=== PATIENT | female | born 1980 | race Caucasian/White ===

== ENCOUNTER 2016-12-11 23:45 | Observation (INO) | payer OTHER | END 2016-12-12 10:35 | disposition HSC | LOC: CBCO 23:45 → GNO 12-12 01:55 | PROVIDERS: ADMIT Obstetrics & Gynecology | DX: O47.1 False labor at or after 37 completed weeks of gestation (principal); Z3A.39 39 weeks gestation of pregnancy | CPT/HCPCS: G0378; G0463 ==

== ENCOUNTER 2016-12-14 07:49 | Inpatient (IN) | payer OTHER ==
[~2016-12-14] VITALS: Ht 162.6 cm; Wt 83.5 kg
[2016-12-14 09:56] LABS: ABSOLUTE BASOPHIL COUNT 0 /CUMM (0.0-0.2); ABSOLUTE EOSINOPHIL COUNT 0.1 /CUMM (0.0-0.7); ABSOLUTE GRANULOCYTE CT 6.5 /CUMM (1.4-6.5); ABSOLUTE LYMPH COUNT 1.6 /CUMM (1.2-3.4); ABSOLUTE MONOCYTE COUNT 0.5 /CUMM (0.10-0.60); BASOPHIL % 0.2 % (0.0-2.0); EOSINOPHIL % 0.8 % (0-5); GRANULOCYTE % 74.7 % (42.2-75.2); HEMATOCRIT 38.6 % (37-47); MEAN CORPUSCULAR HGB 30.3 PG (27.0-31.0); MEAN CORPUSCULAR HGB CONC 33.2 G/DL (33.0-37.0); MEAN CORPUSCULAR VOLUME 91.2 FL (81.0-99.0); MEAN PLATELET VOLUME 12.3 FL (7.4-10.4); RBC DISTRIBUTION WIDTH 13.2 % (11.5-14.5); RED BLOOD CELL CT 4.23 /CUMM (4.20-5.40); WHITE BLOOD CELL COUNT 8.6 /CUMM (4.8-10.8)
[2016-12-14 10:46] LABS: PLATELET COUNT 144 /CUMM (130-400)
--- NOTE | 2016-12-14 15:04 | Labor & Delivery Summary ---
Delivery Summary Vaginal Delivery: Vaginal: spontaneous Episiotomy/Lacerations: Episiotomy/Lacerations: epis Type: rml Repair: 3-0 poly int Anesthesia: local Placenta: Placenta: spontanteous, normal, 3 vessel Anesthesia: epi Baby's Weight: p sts Apgars - 1 Min: 9 Apgars - 5 Min: 9
[2016-12-15 08:09] LABS: ABSOLUTE BASOPHIL COUNT 0 /CUMM (0.0-0.2); ABSOLUTE EOSINOPHIL COUNT 0.1 /CUMM (0.0-0.7); ABSOLUTE GRANULOCYTE CT 8.6 /CUMM (1.4-6.5); ABSOLUTE LYMPH COUNT 1.8 /CUMM (1.2-3.4); ABSOLUTE MONOCYTE COUNT 0.8 /CUMM (0.10-0.60); BASOPHIL % 0.2 % (0.0-2.0); EOSINOPHIL % 0.6 % (0-5); GRANULOCYTE % 76.2 % (42.2-75.2); HEMATOCRIT 33.7 % (37-47); MEAN CORPUSCULAR HGB 30.7 PG (27.0-31.0); MEAN CORPUSCULAR HGB CONC 33.8 G/DL (33.0-37.0); MEAN CORPUSCULAR VOLUME 90.8 FL (81.0-99.0); MEAN PLATELET VOLUME 11.6 FL (7.4-10.4); PLATELET COUNT 131 /CUMM (130-400); RBC DISTRIBUTION WIDTH 13.3 % (11.5-14.5); RED BLOOD CELL CT 3.71 /CUMM (4.20-5.40); WHITE BLOOD CELL COUNT 11.3 /CUMM (4.8-10.8)
[2016-12-16] MEDS ORDERED: DOCUSATE SODIU100 M3 PO (11:08)
[2016-12-16] MEDS ORDERED: IBUPROFEN800 M1 PO (11:08)
--- NOTE | 2016-12-16 12:07 | History & Physical ---
General Information and HPI MD Statement: I have seen and personally examined JAMIE MOYA and documented this H&P. The patient is a 36 year old female at [40] weeks and [0] days gestation who presented with a chief complaint of [iol]. Source of Information: police History of Present Illness: iol ELECTIVE; NORMAL PNC Allergies/Medications Allergies: Coded Allergies: cephalexin (From KEFLEX) (RASH 12/12/16) Home Med list Docusate Sodium 100 MG CAPSULE 100 MG PO BID PRN CONSTIPATION Ibuprofen 800 MG TABLET 800 MG PO Q6P PRN UTERINE CRAMPING Past History payment rep History : 2 Para: 1 Last Menstrual Period: 03/09/16 Past payment rep History: non-contributory Surgical History Pertinent Surgical History: none Past Family/Social History Psychosocial History Smoking Status: Never Smoked Review of Systems Review of Systems Constitutional: Reports: no symptoms. EENTM: Reports: no symptoms. Cardiovascular: Reports: no symptoms. Respiratory: Reports: no symptoms. GI: Reports: no symptoms. Genitourinary: Reports: no symptoms. Musculoskeletal: Reports: no symptoms. Skin: Reports: no symptoms. Neurological/Psychological: Reports: no symptoms. Hematologic/Endocrine: Reports: no symptoms. Immunologic/Allergic: Reports: no symptoms. 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 No Contractions: NONE #1 - FHR Baseline: 140 Category: 1 Estimated Weight: 8 Presentation: CEPHALIC Patient for Induction? Yes العلي Score العلي Score Response Value Cervix Position: posterior 0 Cervix Consistency: soft 2 Cervix Effacement: 30-50% 1 Cervix Dilation: 3-4 cm 2 Cervix Station: -2 1 Total 6 Labs Blood Type & Rh: A POS Antibody Screen: NEG Hct/Hgb & Platelets #1: 39//186 Hct/Hgb & Platelets #2: 34/167 Rubella: IMM VDRL #1: NR VDRL #2: NR HbsAg: NEG HIV #1: NEG HIV #2 NEG 1 Hr P Group B Strep: NEG Initial Ultrasound: WNL Anatomy Ultrasound: WNL Ultrasound for EFW: 7 Genetic Testing: NEG Assessment/Plan Assessment/Plan: 40 WEEK IOL As Ranked By This Provider Problem List: 1. Core Measures/Miscellaneous Venous Thromboembolism VTE Risk Factors: / VTE Contraindications: No Contraindications VTE Prophylaxis Ordered Inpt: Early Ambulation VTE Diagnosis: No Beta Carmella Is Beta Carmella a Home Med? No Antibiotics Is Patient on Antibiotics? No
--- NOTE | 2016-12-16 12:08 | PN- Post Delivery/GYN ---
Subjective Subjective: NO C/O Review of Systems: NEG Objective Last 24 Hrs of Vital Signs/I&O VSS Physical Exam: FF EXT NT Assessment/Plan Assessment/Plan PPD2 S/P STABLE DISCHATGE Problem List: 1.
== END 2016-12-16 12:05 | DRG 775 ==
LOC: GNO 07:49
PROVIDERS: ADMIT Obstetrics & Gynecology
PROC: 0W8NXZZ Division of Female Perineum, External Approach (ICD-10-PCS; principal; 2016-12-14)
PROC: 10E0XZZ Delivery of Products of Conception, External Approach (ICD-10-PCS; principal; 2016-12-14)
DX: O80 Encounter for full-term uncomplicated delivery (principal); Z37.0 Single live birth; Z3A.40 40 weeks gestation of pregnancy
CPT/HCPCS: GNOS; 81001; 87086; J7120